=== PATIENT | male | born 1965 | race Caucasian/White ===

== ENCOUNTER 2017-05-15 02:45 | Emergency (ER) | payer MEDICAID ==
[~2017-05-15] VITALS: Ht 172.7 cm; Wt 88.0 kg
[2017-05-15] MEDS ORDERED: IBUPROFEN 600MG TABLET PO ONE (07:00)
[2017-05-15 09:16] LABS: CLARITY URINE CLEAR (CLEAR); COLOR URINE YELLOW (YELLOW); GLUCOSE URINE NEGATIVE (NEGATIVE); KETONES URINE NEGATIVE (NEGATIVE); LEUKOCYTE ESTERASE URINE NEGATIVE (NEGATIVE); NITRITE URINE NEGATIVE (NEGATIVE); OCCULT BLOOD URINE NEGATIVE (NEGATIVE); PROTEIN URINE NEGATIVE (NEGATIVE); SPECIFIC GRAVITY URINE 1.028 (1.005-1.030); UROBILINOGEN URINE 0.2 E.U./dL (0.2-1.0)
[2017-05-15 11:24] VITALS: BP 130/88
== END 2017-05-15 13:16 | disposition home or self-care (01) ==
LOC: ER 02:45
DX: K40.90 Unilateral inguinal hernia, without obstruction or gangrene, not specified as recurrent (principal)
CPT/HCPCS: 81003; 99283